=== PATIENT | female | born 1995 | race Caucasian/White ===

== ENCOUNTER 2019-05-22 18:36 | Inpatient (IN) ==
[2019-05-22 19:26] LABS: Bilirubin,Urine Small (Negative); Blood,Urine Negative (Negative); Clarity,Urine Clear (Clear); Color,Urine Dark Yellow (Yellow); Glucose,Urine (UA) Normal (Normal); Ketones,Urine 15 mg/dL (Negative); Leukocyte Esterase,Urine Trace (Negative); Nitrite,Urine Negative (Negative); Protein,Urine Trace mg/dL (Neg-Trace); Specific Gravity,Urine 1.027 (1.010-1.025); Urobilinogen,Urine Normal (Normal)
[2019-05-22 19:27] LABS: Hyaline Casts,Urine Few per lpf (None-Few); Squamous Epithelial Cell,Urine Many per lpf (None-Few)
[2019-05-22 19:39] LABS: Amphetamine Screen,Urine Negative ng/mL (Cutoff=1000); Barbiturate Screen,Urine Negative ng/mL (Cutoff=200); Benzodiazepines Screen,Urine Negative ng/mL (Cutoff=200); Cannabinoid Screen,Urine Negative ng/mL (Cutoff = 50); Cocaine Screen,Urine Negative ng/mL (Cutoff= 300); Opiate Screen,Urine Negative ng/mL (Cutoff=300); Phencyclidine Screen,Urine Negative ng/mL (Cutoff=25)
[2019-05-22 19:48] LABS: Basophils % 0.4 %; Eosinophils % 0.2 %; Hematocrit 43.2 % (35.3-44.9); Hemoglobin 14.4 g/dL (11.5-15.4); Immature Granulocytes % 0.4 % (0-4); Lymphocytes # 1.6 K/mcL (0.6-4.6); Lymphocytes % 16.4 %; Mean Corpuscular HGB Conc 33.3 g/dL (31.6-35.5); Mean Corpuscular Hemoglobin 28.5 pg (28.0-33.3); Mean Corpuscular Volume 85.4 fL (83.0-100.0); Mean Platelet Volume 10.5 fL (9.4-12.4); Monocytes # 0.8 K/mcL (0.0-1.3); Monocytes % 7.6 %; Neutrophils # 7.4 K/mcL (1.6-8.9); Platelet Count 266 K/mcL (140-400); Red Blood Count 5.06 M/mcL (3.82-4.97); Red Cell Distribution Width 12.3 % (11.5-14.5); White Blood Count 9.9 K/mcL (4.3-11.1)
--- NOTE | 2019-05-22 19:48 | Emergency Department Note ---
Disposition Clinical Impression: Suicidal ideation Disposition: Admitted As Inpatient Condition: Good Time of Disposition: 21:59 General Adult HPI - General Chief complaint: ED Psychiatric Symptoms Stated complaint: psych eval,SI Time Seen by Provider: 05/22/19 18:54 - Related Data Home Medications Medication Instructions Recorded Confirmed No Known Home Drugs 05/22/19 05/22/19 Allergies Allergy/AdvReac Type Severity Reaction Status Date / Time No Known Allergies Allergy Verified 05/22/19 22:33 Course Vital Signs Temperature 98.1 F 05/22/19 19:55 Pulse Rate 99 05/22/19 19:55 Respiratory Rate 18 05/22/19 19:55 Blood Pressure 127/87 05/22/19 19:55 O2 Sat by Pulse Oximetry 98 05/22/19 19:55 Temperature 98.2 F 05/23/19 19:48 Pulse Rate 89 05/23/19 19:48 Respiratory Rate 16 05/23/19 19:48 Blood Pressure 116/72 05/23/19 19:48 O2 Sat by Pulse Oximetry 97 05/23/19 19:48 Oxygen Delivery Oxygen Delivery Room Air Medical Decision Making - Lab Data Result diagrams: 05/22/19 19:29 05/22/19 19:29 Lab Results 05/22/19 05/22/19 05/22/19 Range/Units 19:10 19:10 19:10 WBC (4.3-11.1) K/mcL RBC (3.82-4.97) M/mcL Hgb (11.5-15.4) g/dL Hct (35.3-44.9) % MCV (83.0-100.0) fL MCH (28.0-33.3) pg MCHC (31.6-35.5) g/dL RDW (11.5-14.5) % Plt Count (140-400) K/mcL MPV (9.4-12.4) fL Immature Gran % (0-4) % Seg Neutrophils % % Lymphocytes % % Monocytes % % Eosinophils % % Basophils % % Neutrophils # (1.6-8.9) K/mcL Lymphocytes # (0.6-4.6) K/mcL Monocytes # (0.0-1.3) K/mcL Eosinophils # (0.0-0.6) K/mcL Basophils # (0.0-0.2) K/mcL Sodium (136-145) mEq/L Potassium (3.5-5.1) mEq/L Chloride (98-107) mEq/L Carbon Dioxide (23-29) mEq/L BUN (6-20) mg/dL Creatinine (0.60-1.20) mg/dL Est GFR ( Amer) (> 60) Est GFR (Non-Af Amer) (> 60) BUN/Creatinine Ratio (6-26) Glucose (70-105) mg/dL Calculated Osmolality (280-300) Calcium (8.6-10.3) mg/dL Urine Color Dark Yellow (Yellow) Urine Clarity Clear (Clear) Urine pH 6.0 (5.0-8.0) pH Units Ur Specific [place] 1.027 H (1.010-1.025) Urine Protein Trace (Neg-Trace) mg/dL Urine Glucose (UA) Normal (Normal) mg/dL Urine Ketones 15 H (Negative) mg/dL Urine Blood Negative (Negative) Urine Nitrite Negative (Negative) Urine Bilirubin Small H (Negative) Urine Urobilinogen Normal (Normal) mg/dL Ur Leukocyte Esterase Trace H (Negative) Urine Microscopic RBC 3-5 H (0-3) per hpf Urine Microscopic WBC 5-15 H (0-3) per hpf Ur Squamous Epith Cells Many H (None-Few) per lpf Urine Bacteria Moderate H (None-Few) per hpf Hyaline Casts Few (None-Few) per lpf Urine Test Negative (Negative) Salicylates (15.0-30.0) mg/dL Urine Opiates Screen Negative (Fzuulx=733) ng/mL Ur Buprenorphine Scrn Negative (Cutoff=5) ng/mL Acetaminophen (10-20) mcg/mL Ur Barbiturates Screen Negative ([place]=670) ng/mL Ur Phencyclidine Scrn Negative (Cutoff=25) ng/mL Ur Amphetamines Screen Negative (Wlfhse=2675) ng/mL U Benzodiazepines Scrn Negative (Icpqpk=496) ng/mL Urine Cocaine Screen Negative (Cutoff= 300) ng/mL U Marijuana (THC) Screen Negative (Cutoff = 50) ng/mL Ur Drug Screen Interp See Below Ethyl Alcohol (Less than 10) mg/dL 05/22/19 05/22/19 Range/Units 19:29 19:29 WBC 9.9 (4.3-11.1) K/mcL RBC 5.06 H (3.82-4.97) M/mcL Hgb 14.4 (11.5-15.4) g/dL Hct 43.2 (35.3-44.9) % MCV 85.4 (83.0-100.0) fL MCH 28.5 (28.0-33.3) pg MCHC 33.3 (31.6-35.5) g/dL RDW 12.3 (11.5-14.5) % Plt Count 266 (140-400) K/mcL MPV 10.5 (9.4-12.4) fL Immature Gran % 0.4 (0-4) % Seg Neutrophils % 75.0 % Lymphocytes % 16.4 % Monocytes % 7.6 % Eosinophils % 0.2 % Basophils % 0.4 % Neutrophils # 7.4 (1.6-8.9) K/mcL Lymphocytes # 1.6 (0.6-4.6) K/mcL Monocytes # 0.8 (0.0-1.3) K/mcL Eosinophils # 0.0 (0.0-0.6) K/mcL Basophils # 0.0 (0.0-0.2) K/mcL Sodium 141 (136-145) mEq/L Potassium 3.8 (3.5-5.1) mEq/L Chloride 107 (98-107) mEq/L Carbon Dioxide 24 (23-29) mEq/L BUN 10 (6-20) mg/dL Creatinine 0.83 (0.60-1.20) mg/dL Est GFR ( Amer) > 60 (> 60) Est GFR (Non-Af Amer) > 60 (> 60) BUN/Creatinine Ratio 12 (6-26) Glucose 116 H (70-105) mg/dL Calculated Osmolality 292 (280-300) Calcium 9.7 (8.6-10.3) mg/dL Urine Color (Yellow) Urine Clarity (Clear) Urine pH (5.0-8.0) pH Units Ur Specific [place] (1.010-1.025) Urine Protein (Neg-Trace) mg/dL Urine Glucose (UA) (Normal) mg/dL Urine Ketones (Negative) mg/dL Urine Blood (Negative) Urine Nitrite (Negative) Urine Bilirubin (Negative) Urine Urobilinogen (Normal) mg/dL Ur Leukocyte Esterase (Negative) Urine Microscopic RBC (0-3) per hpf Urine Microscopic WBC (0-3) per hpf Ur Squamous Epith Cells (None-Few) per lpf Urine Bacteria (None-Few) per hpf Hyaline Casts (None-Few) per lpf Urine Test (Negative) Salicylates < 2.5 L (15.0-30.0) mg/dL Urine Opiates Screen (Xzjflu=531) ng/mL Ur Buprenorphine Scrn (Cutoff=5) ng/mL Acetaminophen < 10 L (10-20) mcg/mL Ur Barbiturates Screen (Bjlozu=977) ng/mL Ur Phencyclidine Scrn (Cutoff=25) ng/mL Ur Amphetamines Screen (Ycvcke=7516) ng/mL U Benzodiazepines Scrn (Ccvjit=545) ng/mL Urine Cocaine Screen (Cutoff= 300) ng/mL U Marijuana (THC) Screen (Cutoff = 50) ng/mL Ur Drug Screen Interp Ethyl Alcohol < 10 (Less than 10) mg/dL Attestation Statement - Attestation Attestation: I examined this patient and my medical decision-making was reviewed with the Resident Physician. I agree with the documented findings, disposition and treatment plan as described except to the extent set forth below. Patient's 23-year-old female that presents to emergency department which complaint of depression and suicidal thoughts. Patient was found with a loaded firearm Physical exam patient is awake alert no acute distress Medical decision management the patient was medically cleared and evaluated by one Pelon
[2019-05-22 19:59] LABS: Bacteria,Urine Moderate per hpf (None-Few)
[2019-05-22 20:01] LABS: Acetaminophen < 10 mcg/mL (10-20); BUN/Creatinine Ratio 12 (6-26); Blood Urea Nitrogen 10 mg/dL (6-20); Calcium 9.7 mg/dL (8.6-10.3); Carbon Dioxide 24 mEq/L (23-29); Chloride 107 mEq/L (98-107); Ethanol < 10 mg/dL (Less than 10); Glucose 116 mg/dL (70-105); Osmolality,Calculated 292 (280-300); Potassium 3.8 mEq/L (3.5-5.1); Salicylate < 2.5 mg/dL (15.0-30.0); Sodium 141 mEq/L (136-145); eGFR For African Americans > 60 (> 60); eGFR For Non-African Americans > 60 (> 60)
--- NOTE | 2019-05-22 20:09 | Emergency Department Note ---
Disposition Clinical Impression: Suicidal ideation Disposition: Admitted As Inpatient Condition: Good Referrals: NONE,PCP [Primary Care Provider] - Forms: ED Satisfaction Letter Time of Disposition: 21:59 Psych HPI - General Chief Complaint: ED Psychiatric Symptoms Stated Complaint: psych evzeinaSI Time Seen by Provider: 05/22/19 18:54 Source: patient Mode of arrival: ambulatory Limitations: no limitations Nursing Notes Reviewed: Yes Vital Signs Reviewed: Yes - History of Present Illness HPI Narrative: Female patient brought in by her father. Patient complaining of depression and suicidal ideation. The story is that she just recently broke up with her boyfriend and is near the anniversary of her mother's she has been d epressed recently. She was on Wellbutrin but is been off it for the past month. She states that she thought she was doing well however everything very stressful today. She was noted to be in her bathroom with a gun to her head. Her father states that he was called and had his to over did find her. He states that when he got there she was very tearful in the bathroom floor. The patient endorses that this is what happened. She is tearful on exam. Denies any visual or auditory hallucinations. Has no other complaints at this time. - Related Data Home Medications Medication Instructions Recorded Confirmed No Known Home Drugs 05/22/19 05/22/19 All systems ED: reviewed and negative except as stated. Review of Systems: As Per HPI Constitutional: Denies: fever, chills Cardiovascular: Denies: chest pain Respiratory: Denies: cough, dyspnea Gastrointestinal: Denies: abdominal pain, nausea, vomiting, diarrhea Genitourinary: Denies: urgency, dysuria, frequency, hematuria Psychiatric: Reports: suicidal thoughts. Denies: homicidal thoughts, auditory hallucinations, visual hallucinations Past Medical History - Past Medical History Attestation: Yes The following information was validated with the patient. Source: patient Medical history: Reports: no medical history Psychiatric history: Reports: depression - Social History Smoking Status: Never smoker Smokeless Tobacco Status: No Alcohol use: Reports: none Drug use: Reports: none Physical Exam - General Limitations: no limitations General appearance: alert, in no apparent distress - Head Head exam: atraumatic, normocephalic, normal inspection - Eye Eye exam: Present: normal appearance, PERRL, EOMI - ENT ENT exam: normal exam, normal oropharynx, mucous membranes moist - Neck Neck exam: Present: normal inspection, full ROM, trachea midline - Chest Chest inspection: Present: normal inspection, symmetric chest wall rise - Respiratory Respiratory exam: Present: normal lung sounds bilaterally. Absent: respiratory distress, accessory muscle use - Cardiovascular Cardiovascular exam: Present: regular rate, normal rhythm, normal heart sounds - Abdominal Exam Abdominal exam: Present: soft, Non-Tender. Absent: tenderness, distention, guarding, rebound, rigidity, organomegaly, Westfall's sign, Rovsing's sign, tenderness at McBurney's Point - Extremities Exam Extremities exam: Present: normal inspection, full ROM, normal capillary refill. Absent: tenderness, pedal edema, calf tenderness - Neurological Exam Neurological exam: Present: alert, oriented X3. Absent: motor sensory deficit - Psychiatric Psychiatric exam: Present: depressed, suicidal ideation - Skin Skin exam: Present: warm, dry, intact, normal color. Absent: rash, cyanosis, diaphoresis Course Course Narrative: Patient endorsing suicidal ideation. Reports that she does have a history of depression and anxiety. Has had these as before but never acted on them. We will thinks that the patient get a basic workup on her. We will have 1A evaluated her. I anticipate admission. Vital Signs Temperature 98.1 F 05/22/19 19:55 Pulse Rate 99 05/22/19 19:55 Respiratory Rate 18 05/22/19 19:55 Blood Pressure 127/87 05/22/19 19:55 O2 Sat by Pulse Oximetry 98 05/22/19 19:55 Temperature 98.1 F 05/22/19 19:55 Pulse Rate 99 05/22/19 19:55 Respiratory Rate 18 05/22/19 19:55 Blood Pressure 127/87 05/22/19 19:55 O2 Sat by Pulse Oximetry 98 05/22/19 19:55 Oxygen Delivery Oxygen Delivery Room Air Psych - Lab Data Result diagrams: 05/22/19 19:29 05/22/19 19:29 Lab Results 05/22/19 05/22/19 05/22/19 Range/Units 19:10 19:10 19:10 WBC (4.3-11.1) K/mcL RBC (3.82-4.97) M/mcL Hgb (11.5-15.4) g/dL Hct (35.3-44.9) % MCV (83.0-100.0) fL MCH (28.0-33.3) pg MCHC (31.6-35.5) g/dL RDW (11.5-14.5) % Plt Count (140-400) K/mcL MPV (9.4-12.4) fL Immature Gran % (0-4) % Seg Neutrophils % % Lymphocytes % % Monocytes % % Eosinophils % % Basophils % % Neutrophils # (1.6-8.9) K/mcL Lymphocytes # (0.6-4.6) K/mcL Monocytes # (0.0-1.3) K/mcL Eosinophils # (0.0-0.6) K/mcL Basophils # (0.0-0.2) K/mcL Sodium (136-145) mEq/L Potassium (3.5-5.1) mEq/L Chloride (98-107) mEq/L Carbon Dioxide (23-29) mEq/L BUN (6-20) mg/dL Creatinine (0.60-1.20) mg/dL Est GFR ( Amer) (> 60) Est GFR (Non-Af Amer) (> 60) BUN/Creatinine Ratio (6-26) Glucose (70-105) mg/dL Calculated Osmolality (280-300) Calcium (8.6-10.3) mg/dL Urine Color Dark Yellow (Yellow) Urine Clarity Clear (Clear) Urine pH 6.0 (5.0-8.0) pH Units Ur Specific [place] 1.027 H (1.010-1.025) Urine Protein Trace (Neg-Trace) mg/dL Urine Glucose (UA) Normal (Normal) mg/dL Urine Ketones 15 H (Negative) mg/dL Urine Blood Negative (Negative) Urine Nitrite Negative (Negative) Urine Bilirubin Small H (Negative) Urine Urobilinogen Normal (Normal) mg/dL Ur Leukocyte Esterase Trace H (Negative) Urine Microscopic RBC 3-5 H (0-3) per hpf Urine Microscopic WBC 5-15 H (0-3) per hpf Ur Squamous Epith Cells Many H (None-Few) per lpf Urine Bacteria Moderate H (None-Few) per hpf Hyaline Casts Few (None-Few) per lpf Urine Test Negative (Negative) Salicylates (15.0-30.0) mg/dL Urine Opiates Screen Negative (Ezygep=002) ng/mL Ur Buprenorphine Scrn Negative (Cutoff=5) ng/mL Acetaminophen (10-20) mcg/mL Ur Barbiturates Screen Negative ([place]by[place]=722) ng/mL Ur Phencyclidine Scrn Negative (Cutoff=25) ng/mL Ur Amphetamines Screen Negative ([place]ed[place]=0594) ng/mL U Benzodiazepines Scrn Negative (Ibxacd=644) ng/mL Urine Cocaine Screen Negative (Cutoff= 300) ng/mL U Marijuana (THC) Screen Negative (Cutoff = 50) ng/mL Ur Drug Screen Interp See Below Ethyl Alcohol (Less than 10) mg/dL 05/22/19 05/22/19 Range/Units 19:29 19:29 WBC 9.9 (4.3-11.1) K/mcL RBC 5.06 H (3.82-4.97) M/mcL Hgb 14.4 (11.5-15.4) g/dL Hct 43.2 (35.3-44.9) % MCV 85.4 (83.0-100.0) fL MCH 28.5 (28.0-33.3) pg MCHC 33.3 (31.6-35.5) g/dL RDW 12.3 (11.5-14.5) % Plt Count 266 (140-400) K/mcL MPV 10.5 (9.4-12.4) fL Immature Gran % 0.4 (0-4) % Seg Neutrophils % 75.0 % Lymphocytes % 16.4 % Monocytes % 7.6 % Eosinophils % 0.2 % Basophils % 0.4 % Neutrophils # 7.4 (1.6-8.9) K/mcL Lymphocytes # 1.6 (0.6-4.6) K/mcL Monocytes # 0.8 (0.0-1.3) K/mcL Eosinophils # 0.0 (0.0-0.6) K/mcL Basophils # 0.0 (0.0-0.2) K/mcL Sodium 141 (136-145) mEq/L Potassium 3.8 (3.5-5.1) mEq/L Chloride 107 (98-107) mEq/L Carbon Dioxide 24 (23-29) mEq/L BUN 10 (6-20) mg/dL Creatinine 0.83 (0.60-1.20) mg/dL Est GFR ( Amer) > 60 (> 60) Est GFR (Non-Af Amer) > 60 (> 60) BUN/Creatinine Ratio 12 (6-26) Glucose 116 H (70-105) mg/dL Calculated Osmolality 292 (280-300) Calcium 9.7 (8.6-10.3) mg/dL Urine Color (Yellow) Urine Clarity (Clear) Urine pH (5.0-8.0) pH Units Ur Specific [place] (1.010-1.025) Urine Protein (Neg-Trace) mg/dL Urine Glucose (UA) (Normal) mg/dL Urine Ketones (Negative) mg/dL Urine Blood (Negative) Urine Nitrite (Negative) Urine Bilirubin (Negative) Urine Urobilinogen (Normal) mg/dL Ur Leukocyte Esterase (Negative) Urine Microscopic RBC (0-3) per hpf Urine Microscopic WBC (0-3) per hpf Ur Squamous Epith Cells (None-Few) per lpf Urine Bacteria (None-Few) per hpf Hyaline Casts (None-Few) per lpf Urine Test (Negative) Salicylates < 2.5 L (15.0-30.0) mg/dL Urine Opiates Screen (Midyov=501) ng/mL Ur Buprenorphine Scrn (Cutoff=5) ng/mL Acetaminophen < 10 L (10-20) mcg/mL Ur Barbiturates Screen (Tqncor=410) ng/mL Ur Phencyclidine Scrn (Cutoff=25) ng/mL Ur Amphetamines Screen (Qqkejc=8219) ng/mL U Benzodiazepines Scrn (Ifkvyv=083) ng/mL Urine Cocaine Screen (Cutoff= 300) ng/mL U Marijuana (THC) Screen (Cutoff = 50) ng/mL Ur Drug Screen Interp Ethyl Alcohol < 10 (Less than 10) mg/dL Psychiatric Medical Clearance - Medical Clearance Checklist Medical History: No Social History Section defined Current Vitals: Last Vital Signs Temp 98.1 F 05/22/19 19:55 Pulse 99 05/22/19 19:55 Resp 18 05/22/19 19:55 BP 127/87 05/22/19 19:55 Pulse Ox 98 05/22/19 19:55 Psychiatric Lab Panel: Drug Levels and Toxicity 05/22/19 05/22/19 19:10 19:29 Urine Opiates Screen Negative Acetaminophen < 10 L Ur Barbiturates Screen Negative Ur Phencyclidine Scrn Negative Ur Amphetamines Screen Negative U Benzodiazepines Scrn Negative Urine Cocaine Screen Negative U Marijuana (THC) Screen Negative Ethyl Alcohol < 10 Abnormal Labs: Abnormal lab results RBC 5.06 M/mcL (3.82-4.97) H 05/22/19 19:29 Glucose 116 mg/dL (70-105) H 05/22/19 19:29 Ur Specific [place] 1.027 (1.010-1.025) H 05/22/19 19:10 Urine Ketones 15 mg/dL (Negative) H 05/22/19 19:10 Urine Bilirubin Small (Negative) H 05/22/19 19:10 Ur Leukocyte Esterase Trace (Negative) H 05/22/19 19:10 Urine Microscopic RBC 3-5 per hpf (0-3) H 05/22/19 19:10 Urine Microscopic WBC 5-15 per hpf (0-3) H 05/22/19 19:10 Ur Squamous Epith Cells Many per lpf (None-Few) H 05/22/19 19:10 Urine Bacteria Moderate per hpf (None-Few) H 05/22/19 19:10 Salicylates < 2.5 mg/dL (15.0-30.0) L 05/22/19 19:29 Acetaminophen < 10 mcg/mL (10-20) L 05/22/19 19:29 Statement of Medical Clearance: I have evaluated the patient, reviewed diagnostic information, and certify that the patient's medical condition is sufficiently stable that transfer to the psychiatric unit does not pose a significant risk of deterioration.
[2019-05-22] MEDS ORDERED: MOM Conc 10 ML UD.LIQ PO PRN (22:36)
[2019-05-22] MEDS ORDERED: *HR* LORazepam 2 MG/ML VIAL IM PRN (22:36)
[2019-05-22] MEDS ORDERED: *HR* LORazepam 1 MG TABLET PO PRN (22:36)
[2019-05-22] MEDS ORDERED: Haloperidol Lactate 5 MG/ML VIAL IM PRN (22:36)
[2019-05-22] MEDS ORDERED: Mag Hydrox/Al Hydrox/Simeth 30 ML UDC PO PRN (22:36)
[2019-05-22] MEDS ORDERED: Acetaminophen 325 MG TABLET PO PRN (23:24)
[2019-05-23] MEDS: hydrOXYzine pamoate 25 MG CAPSULE PO PRN ×2 (00:46→20:23)
[2019-05-23] MEDS: traZODone 50 MG TABLET PO PRN ×2 (00:46→20:23)
--- NOTE | 2019-05-23 12:13 | Psychiatry History & Physical ---
Date of Encounter: 05/23/19 Time of Encounter: 12:01 History of Present Illness Patient Stated Chief Complaint: suicidal ideation Medicare Admission Attestation: For traditional Medicare patients the provided hospital inpatient services are reasonable and necessary and in the case of services not specified as inpatient-only under 42 CFR 419.22 (n), that they are appropriately provided as inpatient services in accordance 42 CFR 412.3. For Critical Access Hospital the patient may reasonably be expected to be discharged or transferred to a hospital within 96 hours after admission to the Critical Access Hospital. Admitted From: Home Plans for Post Hospital Care: Home History of Present Illness: Ms. May is a 23 year old female who was admitted for SI. Client has had multiple stressors recently. She just broke up with her boyfriend of two years and has been staying with her father to give him time to move out of her apartment. She works as a respiratory therapist and recently had a bad work review. Her mother committed suicide a year ago and client just passed the anniversary of her . The day of admission client returned to her apartment and discovered evidence that her boyfriend had been cheating on her with multiple people, including a friend from work. Client states she "snapped" and told him he needed to be out of the apartment immediately. She then went into her bedroom and pulled out a gun. She was holding the gun in her lap when her boyfriend walked in and saw her. Her called her family and they came and brought client to the ER. Client denies any history of suicide attempts but admits she was contemplating using the gun on herself when her boyfriend walked in. Client has never been hospitalized before but she has taken Wellbutrin for depression and tried counseling through her work. Client reports the Wellbutrin would help for a while but then stop being effective. Client first noticed depression and anxiety when she was in college. Client's mother also suffered from depression and anxiety and client thinks her younger sister does as well. Client denies having any physical health problems and she has no AOD issues. Client is easily tearful and states she is "embarrassed" about what she did. Denies any further SI, intent, or plan. Wants to go home and be with family. Would likely be safe to do so but given the severity of the circumstances think it is best to keep her in the hospital for further observation. She is currently not being treated for her depression. She is also stressed about returning to work and seeing her boyfriend who works as a silk screen printing racker and her friend who works as an ER nurse. Client is also stressed about her financial situation since her ex will no longer be paying for half of the bills. She also endorses poor sleep and appetite with recent weight loss. Given her recent stressors think it is best that she remain in the hospital until medications can be started and outpatient follow up can be arranged. Client states the gun should no longer be in her residence as it belonged to her boyfriend and he should be moved out by the time she is discharged. Client states she intends to return to her father's house when she is first discharged and that her family is supportive. Discussed treatment options. Since client did have a positive response to Wellbutrin will restart this but also add an SSRI for the serotonin component. Past Med Surg Social Fam HX - Past Medical History Medical history: no medical history - Past Psychiatric History Psychiatric history: Reports: anxiety, depression Family psychiatric history: Yes Family Psychiatric History Details: mother and sister Family History of Suicide: Completed Family Suicide History Details: mother - Social History Smoking Status: Never smoker Smokeless Tobacco Status: No Alcohol use: none Drug use: none Medications & Allergies No Known Home Drugs 05/22/19 [History] Allergy/AdvReac Type Severity Reaction Status Date / Time No Known Allergies Allergy Verified 05/22/19 22:33 Review of Systems Constitutional: Denies: fever, chills, weakness, weight change Eyes: Denies: eye pain, vision change Ears, Nose, Throat: Denies: ear pain, throat pain, dental pain, hearing loss, congestion Cardiovascular: Denies: chest pain, palpitations, dyspnea on exertion Respiratory: Denies: cough, dyspnea, wheezes Gastrointestinal: Denies: abdominal pain, nausea, vomiting, diarrhea, constipation Genitourinary female: Denies: urgency, dysuria, frequency, abnormal menses, dyspareunia Musculoskeletal: Denies: joint swelling, joint pain Integumentary: Denies: rash, lesions, pruritus Neurological: Denies: headache, weakness, numbness, memory loss Endocrine: Denies: fatigue, heat or cold intolerance Hematologic/Lymphatic: Denies: easy bruising, lymphadenopathy Allergic/Immunologic: Denies: urticaria, itchy eyes Exam - HEENT Head exam IM: Present: atraumatic Eye exam IM: Present: EOMI, normal appearance, PERRL ENT exam IM: Present: normal exam - Neurological Neurological exam: Present: CN II-XII intact - Respiratory Respiratory exam IM: Present: CTAB - GI/Abdominal GI/Abdominal exam IM: Present: normal bowel sounds, soft. Absent: tenderness - Extremities Extremities exam IM: Present: full ROM - Skin Skin exam IM: Present: dry, warm - Constitutional Vitals: Temp Pulse Resp BP Pulse Ox 97.0 F L 56 16 109/71 98 05/23/19 09:00 05/23/19 09:00 05/23/19 09:00 05/23/19 09:00 05/23/19 09:00 General appearance: age & developmentally appropriate, well-groomed, well- nourished - Musculoskeletal Gait: normal Station: relaxed Strength & Tone: normal for patient - Psychiatric Patient Orientation: Yes Person, Yes Time, Yes Place Level of alertness: Alert Behavior: calm, cooperative Psychomotor activity: Normal Eye Contact: Maintains Eye Contact Mood Description: Depressed, Anxious Affect description: tearful Speech Volume: Normal Speech pattern: normal rate, normal rhythm, normal tone, fluent, spontaneous Language & Vocabulary: consistent with education Thought Process: Linear, Goal Oriented Thought Content: Yes Suicidal ideation, No Homicidal ideation, No Overt delusions Perceptual Disturbances: No Auditory hallucinations, No Visual hallucinations Attention Span Ability: Capable of Focused Attention Memory Description: Grossly Intact Patient Reliability: Reliable Historian Fund of knowledge: Yes abstraction ability, Yes average, Yes aware of current events Intelligence Estimate: Average Judgment: Fair Insight: Partial Results - Drug Levels and Toxicology Drug Levels and Toxicology: Drug Levels and Toxicity 05/22/19 05/22/19 19:10 19:29 Urine Opiates Screen Negative Acetaminophen < 10 L Ur Barbiturates Screen Negative Ur Phencyclidine Scrn Negative Ur Amphetamines Screen Negative U Benzodiazepines Scrn Negative Urine Cocaine Screen Negative U Marijuana (THC) Screen Negative Ethyl Alcohol < 10 - Labs Labs: Laboratory Last Values WBC 9.9 K/mcL (4.3-11.1) 05/22/19 19:29 RBC 5.06 M/mcL (3.82-4.97) H 05/22/19 19:29 Hgb 14.4 g/dL (11.5-15.4) 05/22/19 19: Hct 43.2 % (35.3-44.9) 05/22/19: MCV 85.4 fL (83.0-100.0) 05/22/19 19: MCH 28.5 pg (28.0-33.3) 05/22/19: MCHC 33.3 g/dL (31.6-35.5) 05/22/19: RDW 12.3 % (11.5-14.5) 05/22/19: Plt Count 266 K/mcL (140-400) 05/22/19: MPV 10.5 fL (9.4-12.4) 05/22/19: Immature Gran % 0.4 % (0-4) 05/22/19 Seg Neutrophils % 75.0 % 05/22/19: Lymphocytes % 16.4 % 05/22/19: Monocytes % 7.6 % 05/22/19: Eosinophils % 0.2 % 05/22/19: Basophils % 0.4 % 05/22/19: Neutrophils # 7.4 K/mcL (1.6-8.9) 05/22/19: Lymphocytes # 1.6 K/mcL (0.6-4.6) 05/22/19: Monocytes # 0.8 K/mcL (0.0-1.3) 05/22/19: Eosinophils # 0.0 K/mcL (0.0-0.6) 05/22/19: Basophils # 0.0 K/mcL (0.0-0.2) 05/22/19: Sodium 141 mEq/L (136-145) 05/22/19: Potassium 3.8 mEq/L (3.5-5.1) 05/22/19: Chloride 107 mEq/L (98-107) 05/22/19: Carbon Dioxide 24 mEq/L (23-29) 05/22/19: BUN 10 mg/dL (6-20) 05/22/19: Creatinine 0.83 mg/dL (0.60-1.20) 05/22/19 19:29 Est GFR ( Amer) > 60 (> 60) 05/22/19 19:29 Est GFR (Non-Af Amer) > 60 (> 60) 05/22/19 19:29 BUN/Creatinine Ratio 12 (6-26) 05/22/19 19:29 Glucose 116 mg/dL (70-105) H 05/22/19 19:29 Calculated Osmolality 292 (280-300) 05/22/19 19: Calcium 9.7 mg/dL (8.6-10.3) 05/22/19 19: Urine Color Dark Yellow (Yellow) 05/22/19 19:10 Urine Clarity Clear (Clear) 05/22/19 19: Urine pH 6.0 pH Units (5.0-8.0) 05/22/19 19:10 Ur Specific [place] 1.027 (1.010-1.025) H 05/22/19 19:10 Urine Protein Trace mg/dL (Neg-Trace) 05/22/19 19:10 Urine Glucose (UA) Normal mg/dL (Normal) 05/22/19 19:10 Urine Ketones 15 mg/dL (Negative) H 05/22/19 19:10 Urine Blood Negative (Negative) 05/22/19 19:10 Urine Nitrite Negative (Negative) 05/22/19 19:10 Urine Bilirubin Small (Negative) H 05/22/19 19:10 Urine Urobilinogen Normal mg/dL (Normal) 05/22/19 19:10 Ur Leukocyte Esterase Trace (Negative) H 05/22/19 19:10 Urine Microscopic RBC 3-5 per hpf (0-3) H 05/22/19 19:10 Urine Microscopic WBC 5-15 per hpf (0-3) H 05/22/19 19:10 Ur Squamous Epith Cells Many per lpf (None-Few) H 05/22/19 19:10 Urine Bacteria Moderate per hpf (None-Few) H 05/22/19 19:10 Hyaline Casts Few per lpf (None-Few) 05/22/19 19:10 Urine Test Negative (Negative) 05/22/19 19:10 Salicylates < 2.5 mg/dL (15.0-30.0) L 05/22/19 19:29 Urine Opiates Screen Negative ng/mL (Xkljci=886) 05/22/19 19:10 Ur Buprenorphine Scrn Negative ng/mL (Cutoff=5) 05/22/19 19:10 Acetaminophen < 10 mcg/mL (10-20) L 05/22/19 19:29 Ur Barbiturates Screen Negative ng/mL (Trlewb=176) 05/22/19 19:10 Ur Phencyclidine Scrn Negative ng/mL (Cutoff=25) 05/22/19 19:10 Ur Amphetamines Screen Negative ng/mL (Urxdrw=8885) 05/22/19 19:10 U Benzodiazepines Scrn Negative ng/mL (Kkicln=880) 05/22/19 19:10 Urine Cocaine Screen Negative ng/mL (Cutoff= 300) 05/22/19 19:10 U Marijuana (THC) Screen Negative ng/mL (Cutoff = 50) 05/22/19 19:10 Ur Drug Screen Interp See Below 05/22/19 19:10 Ethyl Alcohol < 10 mg/dL (Less than 10) 05/22/19 19:29 Assessment and Plan (1) Major depress dis, severe Current visit: Yes Status: Acute Plan: Admit inpatient for safety and stabilization, Close observation, Suicide Precautions per unit protocol, Encourage participation in unit milieu, Group Therapy, Monitor sleep, Monitor appetite Risks, benefits, side effects, alter natives discussed w/pt: Yes Patient agreeable to treatment: Yes Plans for Post Hospital Care: Home Estimated Length of Stay (Days): 4
[2019-05-23] MEDS: BuPROPion XL (24 HR) 150 MG TABLET PO SCH (13:23)
[2019-05-24] MEDS: BuPROPion XL (24 HR) 150 MG TABLET PO SCH (09:46)
[2019-05-24 10:09] VITALS: BP 101/75
--- NOTE | 2019-05-24 11:04 | Discharge Summary ---
Date of Encounter: 05/24/19 Time of Encounter: 10:52 Diagnosis - Discharge Diagnosis (1) Major depress dis, severe Status: Acute Medications - Discharge Medications Prescriptions: traZODone [TraZODone] 50 mg PO HS PRN #30 tablet PRN Reason: Insomnia BuPROPion XL (24 HR) [Wellbutrin Xl] 150 mg PO DAILY #30 tab.er.24h Sertraline [Zoloft] 50 mg PO DAILY #30 tablet BuPROPion XL (24 HR) [Wellbutrin Xl] 150 mg PO DAILY #30 tab.er.24h 05/24/19 [Rx] Sertraline [Zoloft] 50 mg PO DAILY #30 tablet 05/24/19 [Rx] traZODone [TraZODone] 50 mg PO HS PRN #30 tablet 05/24/19 [Rx] Allergy/AdvReac Type Severity Reaction Status Date / Time No Known Allergies Allergy Verified 05/22/19 22:33 Results Procedures and tests throughout hospitalization: Completed Lab Orders Category Date Time Status Acetaminophen Stat Lab 05/22/19 19:29 Completed Basic Metabolic Panel Stat Lab 05/22/19 19:29 Completed Complete Blood Count [HEME] Stat Lab 05/22/19 19:29 Completed Drug Screen, Urine [UCHEM] Stat Lab 05/22/19 19:10 Completed Ethanol Stat Lab 05/22/19 19:29 Completed Test Result, Urine [URIN] Stat Lab 05/22/19 19:10 Completed Salicylate Stat Lab 05/22/19 19:29 Completed Urinalysis reflex Microscopic [URIN] Stat Lab 05/22/19 19:10 Completed Provider Date of admission: 05/22/19 22:03 Primary care physician: PCP NONE Discharging clinician: Erica Barakat Psychiatry Exam - Constitutional Vitals: Temp Pulse Resp BP Pulse Ox 97.4 F L 74 16 101/75 96 05/24/19 09:00 05/24/19 09:00 05/24/19 09:00 05/24/19 09:00 05/24/19 09:00 General appearance: age & developmentally appropriate, well-groomed, well- nourished - Musculoskeletal Gait: normal Station: relaxed Strength & Tone: normal for patient - Psychiatric Patient Orientation: Yes Person, Yes Time, Yes Place Level of alertness: Alert Behavior: calm, cooperative Psychomotor activity: Normal Eye Contact: Maintains Eye Contact Mood Description: Depressed Affect description: full range Speech Volume: Normal Speech pattern: normal rate, normal rhythm, normal tone, fluent, spontaneous Language & Vocabulary: consistent with education Thought Process: Linear, Goal Oriented Thought Content: No Suicidal ideation, No Homicidal ideation, No Overt delusions Perceptual Disturbances: No Auditory hallucinations, No Visual hallucinations Attention Span Ability: Capable of Focused Attention Memory Description: Grossly Intact Patient Reliability: Reliable Historian Fund of knowledge: Yes abstraction ability, Yes aware of current events Intelligence Estimate: Average Judgment: Fair Insight: Partial Hospital Course Hospital course: Ms. May is a 23 year old female who was admitted for SI. Client has had several recent stressors and following a break up with her boyfriend she went into her bedroom and pulled out a gun. Client was sitting with it when her boyfriend walked in, saw her, and called her family to bring her the ER. On initial eval client was tearful and admitted she was considering using it. However, she was denying any further SI and wanted to leave. Given the seriousness of her situation this senior copywriter elected to keep client in the hospital. Client had taken Welbutrin in the past with positive results. This medication was restarted along with low dose Zoloft for additional mood control. Client responded well to this combination. Today she is bright, reactive, and future oriented. She is denying any further SI, intent, or plan and she still wants discharged to be with family. This senior copywriter spoke with her stepmother who verified client's boyfriend has moved out and that all of his belongings, including the gun, are gone. However, she reports that client will be staying with them for a transitional period and client is in agreement with this. Client is agreeable to outpatient follow up for medication management and counseling. Given that it is the weekend and clinic's are closed, client will be contacted with outpatient appointments early next week. On the unit client has been calm and cooperative. She has been out of her room interacting and attending groups. She has slept and eaten well. Feels ready for discharge. Total time spent with client greater than 30 minutes. Patient was educated of her diagnosis and the risks, benefits, and side effects of this treatment and alternative treatment options and was monitored for responsiveness and side effects. Mood, anxiety, sleep, appetite, and interest improved, as did future orientation. Self-harm thoughts subsided, thinking cleared, psychosis resolved, and mood stabilized. Patient was able to attend [facility] individual and group therapy sessions as well as meeting with the psychiatrist daily and urged to discuss any medication or treatment issues or other concerns. The patient was educated primarily by verbal means about their diagnosis and manifestations in their life. The option for treatment including group and individual therapy programming was offered to the patient in the use of medications with all their potential risks, benefits, and side effects were discussed with the patient at length. The patient was given the opportunity to ask questions and was noted to participate in the treatment in the planning process. The patient felt ready and eager to be discharged from the inpatient psychiatric unit to continue on with treatment as an outpatient. The patient agreed that she is safe for this disposition. The patient was considered to be able to participate in informed consent and decision making with respect to medical, legal, and financial issues of the time of discharge. At the time of discharge the patient adamantly denied any concerns for lethality including suicidal or homicidal thoughts ideations or plans and was future oriented toward ongoing mental health care, medical follow-up and sobriety. - Time Spent with Patient Total time spent providing and/or coordinating discharge services: Greater than 30 minutes Assessment and Plan - Patient/Caregiver Discharge Instructions Activity: resume usual activities as tolerated Diet: regular diet - Follow up Plan Follow up with: NONE,PCP [Primary Care Provider] - Functional capacity at discharge: independent ambulation Overall status at discharge: Stable Disposition: Home, Self-Care Quality - Multiple Antipsychotics Patient discharged on 2 or more antipsychotic medications: No Procedures - Procedures Procedures: Medication Management, Crisis Stabilization, Supportive Therapy, Group Therapy
== END 2019-05-24 13:45 | disposition home or self-care (01) | DRG 885 ==
LOC: EMEROOARM 18:36 → 1ANU 22:03
PROVIDERS: ADMIT Psychiatry & Neurology Psychiatry; ATTEND Psychiatry & Neurology Psychiatry